=== PATIENT | male | born 1990 | race American Indian/Alaskan Native ===

== ENCOUNTER 2018-04-02 14:27 | Outpatient (CLI) | payer OTHER ==
--- NOTE | 2018-04-02 15:10 | XRay Report ---
LEFT ELBOW, 3 views: History: left elbow pain. The bony architecture is intact without evidence of fracture or dislocation. No significant soft tissue abnormality is seen. IMPRESSION: Normal left elbow.
== END 2018-04-02 14:28 | disposition home or self-care (01) ==
LOC: SPVIMAG 14:27
PROVIDERS: ATTEND Orthopaedic Surgery
DX: M25.522 Pain in left elbow (principal)